=== PATIENT | female | born 1935 | race Caucasian/White ===

== ENCOUNTER 2017-11-25 13:45 | Inpatient (IN) ==
[2017-11-25] MEDS ORDERED: SODIUM CHLORIDE 0.9% 500 ML IV STA (14:31)
[2017-11-25 15:21] LABS: Basophils % 0.2 % (0.0-0.8); Eosinophils % 0.2 % (0.00-10.9); Hematocrit 31.8 VOL% (35.7-47.0); Hemoglobin 10.7 GM/DL (12.0-16.0); Immature Granulocytes % 0.6 %; Immature Granulocytes Absolute 0.05 #; Lymphocytes # 0.5 10*3/uL (1.4-4.0); Lymphocytes % 5.3 % (21.3-54.2); Mean Corpuscular HGB Conc 33.6 GM/DL (32-36); Mean Corpuscular Hemoglobin 30 PG (27-34); Mean Corpuscular Volume 88.6 FL (87-102); Mean Platelet Volume 11.9 FL (9.6-12.0); Monocytes % 11.1 % (1.7-12.7); Neutrophils # 7.2 10*3/uL (1.4-7.4); Neutrophils % 82.6 % (38.7-73.9); Platelet Count 156 T/CUMM (130-400); Red Blood Count 3.59 MC/CUMM (3.8-5.5); Red Cell Distribution Width 15.5 % (9.3-17.3); White Blood Count 8.7 T/CUMM (4-12)
[2017-11-25 15:31] LABS: Amorphous Crystals,Urine Occasional /HPF (Few); Apearance,Urine CLOUDY (Clear); Bacteria,Urine Many /HPF (Few); Bilirubin,Urine Negative (Negative); Blood, Urine Moderate mg/dL (Negative); Glucose,Urine (UA) Negative (Negative); Ketones,Urine Negative (Negative); Mucus,Urine Occasional /LPF (Occasional); Nitrite,Urine Positive (Negative); Protein,Urine 100 MG/DL; Squamous Epithelial Cell,Urine Occasional /HPF (0-10); Urine Color Yellow (Yellow); Urine Urobilinogen < 2.0 EU/DL (0.2-1.0); WBC,Urine 55 /HPF (0-6)
[2017-11-25 15:34] LABS: INR 3.4
[2017-11-25 15:39] LABS: PT Patient Result 34.8 SECS
[2017-11-25 15:48] LABS: Albumin 2.3 G/DL (3.4-5.0); Bilirubin,Total 0.5 MG/DL (0.2-1.0); Calcium 10.1 MG/DL (8.5-10.1); Osmolality,Calculated 276.5 MOS/KG (273-304); Potassium 3.6 MMOL/L (3.5-5.1); Total Protein 6.9 G/DL (6.4-8.3)
[2017-11-25] MEDS ORDERED: SODIUM CHLORIDE 0.9% 1,900 ML IV ONE (16:03)
[2017-11-25] MEDS ORDERED: LEVOFLOXACIN INJ 500 MG in PREMIX 1 EACH IV SCH (16:30)
[2017-11-25] MEDS ORDERED: ONDANSETRON 4 MG/2 ML VIAL IV PRN (17:02)
[2017-11-25] MEDS ORDERED: LEVOFLOXACIN INJ 100 ML IV ONE (17:33)
[2017-11-25] MEDS ORDERED: SODIUM CHLORIDE 0.9% 900 ML IV STA (17:51)
[2017-11-25] MEDS: CARVEDILOL 3.125 MG TABLET PO SCH (21:22)
[2017-11-25] MEDS: ACETAMINOPHEN 325 MG TABLET PO PRN (21:22)
[2017-11-25] MEDS: MEROPENEM 1,000 MG in SYRINGE 1 EACH IV SCH (21:23)
[2017-11-25 22:23] LABS: Lactic Acid 2.3 MMOL/L (0.4-2.0)
[2017-11-26] MEDS: SODIUM CHLORIDE 0.9% 1,000 ML IV SCH ×2 (01:23→14:35)
[2017-11-26] MEDS: MEROPENEM 1,000 MG in SYRINGE 1 EACH IV SCH ×2 (02:57→14:36)
[2017-11-26 04:54] LABS: Basophils % 0.2 % (0.0-0.8); Eosinophils % 0.3 % (0.00-10.9); Hematocrit 33.5 VOL% (35.7-47.0); Hemoglobin 10.4 GM/DL (12.0-16.0); Immature Granulocytes Absolute 0.09 #; Lymphocytes # 0.4 10*3/uL (1.4-4.0); Lymphocytes % 3.8 % (21.3-54.2); Mean Corpuscular Hemoglobin 29 PG (27-34); Mean Corpuscular Volume 93.3 FL (87-102); Mean Platelet Volume 12.8 FL (9.6-12.0); Monocytes % 10.2 % (1.7-12.7); Neutrophils % 84.5 % (38.7-73.9); Platelet Count 132 T/CUMM (130-400); Red Blood Count 3.59 MC/CUMM (3.8-5.5); Red Cell Distribution Width 15.6 % (9.3-17.3); White Blood Count 9.5 T/CUMM (4-12)
[2017-11-26 05:15] LABS: INR 4.3
[2017-11-26 05:17] LABS: Band Neutrophils 2 % (0-10); Giant Platelets Few; Hypochromasia 1+; Lymphocytes 2 % (20-55); Microcytosis Slight; Ovalocytes Slight; Platelet Estimate Normal; Segmented Neutrophils 89 % (50-85); Total Cells Counted 100
[2017-11-26 05:22] LABS: PT Patient Result 42.6 SECS
[2017-11-26 05:30] LABS: Calcium 8.7 MG/DL (8.5-10.1); Potassium 3.7 MMOL/L (3.5-5.1)
[2017-11-26] MEDS: PARoxetine 20 MG TABLET PO SCH (08:05)
[2017-11-26] MEDS: PANTOPRAZOLE 40 MG TABLET PO SCH (08:05)
[2017-11-26] MEDS: CARVEDILOL 3.125 MG TABLET PO SCH ×2 (08:05→16:40)
[2017-11-26] MEDS ORDERED: SODIUM CHLORIDE 0.9% 500 ML IV ONE (12:23)
[2017-11-26] MEDS ORDERED: WARFARIN 2.5 MG TABLET PO SCH (17:13)
[2017-11-26] MEDS ORDERED: LEVOFLOXACIN INJ 250 MG in PREMIX 1 EACH IV SCH (17:30)
[2017-11-27] MEDS: MEROPENEM 1,000 MG in SYRINGE 1 EACH IV SCH ×2 (04:25→14:30)
[2017-11-27 07:41] LABS: INR 3.6
[2017-11-27 07:42] LABS: PT Patient Result 36.7 SECS
[2017-11-27] MEDS: CARVEDILOL 3.125 MG TABLET PO SCH (09:03)
[2017-11-27] MEDS: PANTOPRAZOLE 40 MG TABLET PO SCH (09:03)
[2017-11-27] MEDS: PARoxetine 20 MG TABLET PO SCH (09:03)
[2017-11-27] MEDS: SODIUM CHLORIDE 0.9% 1,000 ML IV SCH (11:42)
[2017-11-27] MEDS: ACETAMINOPHEN 325 MG TABLET PO PRN (16:03)
[2017-11-27] MEDS ORDERED: WARFARIN 5 MG TABLET PO SCH (17:30)
[2017-11-27] MEDS ORDERED: FUROSEMIDE 40 MG/4 ML VIAL IV ONE (18:07)
[2017-11-27] MEDS: METOPROLOL SUCCINATE XL 25 MG TABLET PO SCH (22:37)
[2017-11-28] MEDS: MEROPENEM 1,000 MG in SYRINGE 1 EACH IV SCH ×2 (03:35→15:28)
[2017-11-28 05:05] LABS: Basophils % 0.1 % (0.0-0.8); Eosinophils % 0.3 % (0.00-10.9); Hematocrit 30.1 VOL% (35.7-47.0); Hemoglobin 9.6 GM/DL (12.0-16.0); Immature Granulocytes % 3.6 %; Immature Granulocytes Absolute 0.42 #; Lymphocytes # 0.9 10*3/uL (1.4-4.0); Mean Corpuscular HGB Conc 31.9 GM/DL (32-36); Mean Corpuscular Hemoglobin 29 PG (27-34); Mean Corpuscular Volume 90.1 FL (87-102); Mean Platelet Volume 11.9 FL (9.6-12.0); Monocytes # 1.1 10*3/uL (0.11-0.8); Monocytes % 9.3 % (1.7-12.7); Neutrophils # 9.2 10*3/uL (1.4-7.4); Neutrophils % 78.7 % (38.7-73.9); Platelet Count 167 T/CUMM (130-400); Red Blood Count 3.34 MC/CUMM (3.8-5.5); Red Cell Distribution Width 16.2 % (9.3-17.3); White Blood Count 11.7 T/CUMM (4-12)
[2017-11-28 05:07] LABS: INR 3.3
[2017-11-28 05:08] LABS: PT Patient Result 32.9 SECS
[2017-11-28 05:26] LABS: Calcium 8.1 MG/DL (8.5-10.1); Magnesium 1.8 MG/DL (1.8-2.4); Osmolality,Calculated 283.5 MOS/KG (273-304); Potassium 3.8 MMOL/L (3.5-5.1)
[2017-11-28 05:28] LABS: Giant Platelets Few; Hypochromasia 1+; Lymphocytes 5 % (20-55); Microcytosis Slight; Ovalocytes Slight; Platelet Estimate Normal; Segmented Neutrophils 91 % (50-85); Total Cells Counted 100
[2017-11-28] MEDS: PANTOPRAZOLE 40 MG TABLET PO SCH (08:28)
[2017-11-28] MEDS: PARoxetine 20 MG TABLET PO SCH (08:28)
[2017-11-28] MEDS: METOPROLOL SUCCINATE XL 25 MG TABLET PO SCH ×2 (08:28→20:47)
[2017-11-29] MEDS: MEROPENEM 1,000 MG in SYRINGE 1 EACH IV SCH (03:24)
[2017-11-29] MEDS: PARoxetine 20 MG TABLET PO SCH (09:28)
[2017-11-29] MEDS: METOPROLOL SUCCINATE XL 25 MG TABLET PO SCH (09:28)
[2017-11-29] MEDS: PANTOPRAZOLE 40 MG TABLET PO SCH (09:28)
[2017-11-29 10:01] LABS: INR 2.5
[2017-11-29 10:03] LABS: PT Patient Result 25.9 SECS
[2017-11-29] MEDS ORDERED: ALUMINUM/MAGNES/SIMETH MAX STR 30 ML UDCUP PO PRN (10:23)
[2017-11-29 12:41] VITALS: BP 139/77
[2017-11-29] MEDS ORDERED: WARFARIN 2.5 MG TABLET PO SCH (18:00)
[2017-12-02] MEDS ORDERED: WARFARIN 3 MG TABLET PO SCH (18:00)
== END 2017-11-29 14:30 | DRG 872 ==
LOC: EDUNIT# → EDBD → N.ED 13:45 → N.EDINP 16:13 → SUATTDRO 16:13 → N.TELES 18:12
PROVIDERS: ADMIT Internal Medicine; ATTEND Internal Medicine